=== PATIENT | female | born 1965 | race Caucasian/White ===

== ENCOUNTER 2019-12-08 12:45 | Emergency (ER) | payer SELFPAY ==
[2019-12-08] MEDS ORDERED: HYDROCODONE/APAP 5/325 MG TAB ONE (13:51)
[2019-12-08] MEDS ORDERED: DIAZEPAM 2 MG TABLET ONE (13:51)
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
--- NOTE | 2019-12-09 07:34 | EKG ---
Test Date: 2019-12-08 Test Time: 13:55:04 Casting Supervisor: NATI MEASUREMENT RESULTS: Intervals: Rate: 90 FL: 184 QRSD: 78 QT: 352 QTc: 430 [place]: P: 54 FL: 184 QRS: 78 T: 59 INTERPRETIVE STATEMENTS: Normal sinus rhythm Normal ECG No previous ECG available for comparison Electronically Signed On 12-09-19 07:32:35 CDT by Alo Khan
[2019-12-12 14:37] VITALS: BP 127/95; TEMP 98; O2SAT 97
== END 2019-12-08 15:00 | disposition home or self-care (01) ==
LOC: ER 12:45
DX: S09.90XA Unspecified injury of head, initial encounter (principal); V43.52XA Car driver injured in collision with other type car in traffic accident, initial encounter; Y93.89 Activity, other specified; Y92.410 Unspecified street and highway as the place of occurrence of the external cause
CPT/HCPCS: 70450; 71250; 72125; 93005; 99283

== ENCOUNTER 2021-01-23 00:37 | Emergency (ER) | payer SELFPAY ==
[2021-01-23 01:35] LABS: Absolute Lymphocytes (CBC) 4.2 K/uL (0.7-4.9); Basophils % 0.2 % (0-1.3); Hematocrit 43.8 % (36.0-45.0); Lymphocytes % 43.4 % (15.3-44.8); MPV 8.6 fL (7.6-11.3); RBC Red Blood Cell Count 4.35 M/uL (3.86-4.86)
[2021-01-23] MEDS ORDERED: NA CHLORIDE 0.9% 500 ML ONE (01:40)
[2021-01-23 01:43] LABS: BUN Blood Urea Nitrogen 8 mg/dL (7-18); Bicarbonate 24 mmol/L (21-32); Glucose Level 106 mg/dL (74-106); Potassium 3.9 mmol/L (3.5-5.1); Sodium Level 142 mmol/L (136-145)
[2021-01-23] MEDS ORDERED: IBUPROFEN 400 MG TAB ONE (02:54)
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
[2021-01-23] MEDS ORDERED: LORazepam 2 MG/ML VIAL ONE (03:30)
[2021-01-23 04:36] VITALS: TEMP 98.6
[2021-01-23 04:37] VITALS: O2SAT 97
[2021-01-23 04:38] VITALS: BP 139/92
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
== END 2021-01-23 04:26 | disposition home or self-care (01) ==
LOC: ER 00:37
DX: S00.83XA Contusion of other part of head, initial encounter (principal); M25.521 Pain in right elbow; M25.532 Pain in left wrist; Y04.2XXA Assault by strike against or bumped into by another person, initial encounter; I10 Essential (primary) hypertension; F17.210 Nicotine dependence, cigarettes, uncomplicated
CPT/HCPCS: 36415; 70450; 71260; 72125; 74177; 80048; 85025; 86850; 86900; 86901; 96361; 96374; 99284; J7040; Q9967